=== PATIENT | female | born 1965 | race Caucasian/White ===

== ENCOUNTER 2019-07-13 07:56 | Emergency (ER) | payer SELFPAY ==
[~2019-07-13] VITALS: Ht 162.6 cm; Wt 68.9 kg
[2019-07-13 08:06] VITALS: BP 169/77
--- NOTE | 2019-07-13 08:33 | NUR ---
Patient/Caregiver given discharge instructions and they have confirmed that they understand the instructions. Patient ambulatory with steady gait. pt left with all personal belongings.
== END 2019-07-13 08:35 | disposition home or self-care (01) ==
LOC: ED 08:10
DX: K02.9 Dental caries, unspecified (principal)
CPT/HCPCS: 99283